=== PATIENT | female | born 1990 ===

== ENCOUNTER 2018-03-19 11:43 | Emergency (ER) | payer BC ==
--- NOTE | 2018-03-19 12:07 | ED PDOC ---
Arrival/HPI - General Chief Complaint: Shortness Of Breath Time Seen by Provider: 03/19/18 11:53 Historian: Patient - History of Present Illness Narrative History of Present Illness (Text): 03/19/18 12:04 is a 28 year old female whose past medical history includes endometriosis, hypothyroidism, and anemia, who presents to the Emergency Department complaining of chest pain and dyspnea, which started yesterday evening. Patient reports that she was sweeping dust when she started coughing, having chest pain, and her face became erythematous and swollen. She also had difficulty breathing. Patient denies taking Benadryl for her symptoms, and her facial symptoms resolved with time. Patient notes that her coughing improved but didn't resolve after 45 minutes. Her chest pain and dyspnea continued throughout the night to today. Patient states that the chest pain is exacerbated by inhaling, and continues to cough. Of note her last normal menstrual period was on 02/27/18, and she denies a history of asthma. Patient admits to being allergic to an antibiotic, which was prescribed for strep throat, but doesn't know the name of the medication. Patient denies fevers, chills, throat sensation, dyspnea on exertion, abdominal pain, nausea, vomiting, diarrhea, neck/back pain, urinary/bowel changes, headache, dizziness, or any other complaint. Time/Duration: Other (yesterday evening) Symptom Onset: Sudden Symptom Course: Unchanged Context: Home Past Medical History - Provider Review Nursing Documentation Reviewed: Yes - Cardiac Hx Cardiac Disorders: No - Pulmonary Hx Respiratory Disorders: Yes Other/Comment: SEASONAL ALLERGIES - Neurological Hx Neurological Disorder: No - HEENT Hx HEENT Disorder: No - Renal Hx Renal Disorder: No - Endocrine/Metabolic Hx Endocrine Disorders: Yes Other/Comment: THYROID DISEASE - Hematological/Oncological Hx Blood Disorders: Yes Hx Anemia: Yes - Integumentary Hx Dermatological Disorder: No - Musculoskeletal/Rheumatological Hx Musculoskeletal Disorders: No - Gastrointestinal Hx Gastrointestinal Disorders: No - Genitourinary/Gynecological Hx Genitourinary Disorders: Yes Other/Comment: ENDOMETRIOSIS - Psychiatric Hx Psychophysiologic Disorder: No Hx Substance Use: No Family/Social History - Physician Review Nursing Documentation Reviewed: Yes Family/Social History: No Known Family HX Smoking Status: Never Smoked Hx Alcohol Use: Yes Frequency of alcohol use: Socially Hx Substance Use: No Allergies/Home Meds Allergies/Adverse Reactions: Allergies soy Allergy (Verified 03/19/18 11:54) RASH UNSPECIFIED ANTIBIOTIC Allergy (Uncoded 03/19/18 11:55) RASH Review of Systems - Physician Review All systems were reviewed & negative as marked: Yes - Review of Systems Constitutional: absent: Fevers, Night Sweats Respiratory: SOB, Cough Cardiovascular: Chest Pain. absent: HOWELL Gastrointestinal: absent: Abdominal Pain, Constipation, Diarrhea, Nausea, Vomiting Genitourinary Female: absent: Urine Output Changes Musculoskeletal: absent: Back Pain, Neck Pain Neurological: absent: Headache, Dizziness Physical Exam Vital Signs Reviewed: Yes Vital Signs Temp Pulse Resp BP Pulse Ox 03/19/18 11:56 99.2 F 98 H 16 128/76 98 Temperature: Afebrile Blood Pressure: Normal Pulse: Regular Respiratory Rate: Normal Appearance: Positive for: Well-Appearing Mental Status: Positive for: Alert and Oriented X 3 - Systems Exam Head: Present: Atraumatic, Normocephalic Pupils: Present: PERRL Extroacular Muscles: Present: EOMI Conjunctiva: Present: Normal Mouth: Present: Moist Mucous Membranes Pharnyx: Present: Normal Neck: Present: Normal Range of Motion Respiratory/Chest: Present: Clear to Auscultation, Decreased Breath Sounds (bilaterally), Rhonchi (scattered). No: Respiratory Distress, Accessory Muscle Use Cardiovascular: Present: Regular Rate and Rhythm, Normal S1, S2. No: Murmurs Abdomen: No: Tenderness, Distention, Peritoneal Signs Back: Present: Normal Inspection Upper Extremity: Present: Normal Inspection. No: Cyanosis, Edema Lower Extremity: Present: Normal Inspection. No: Edema Neurological: Present: GCS=15, CN II-XII Intact, Speech Normal Skin: Present: Warm, Dry, Normal Color. No: Rashes Psychiatric: Present: Alert, Oriented x 3, Normal Insight, Normal Concentration Medical Decision Making ED Course and Treatment: 03/19/18 12:04 Impression: 28 year old female complaining of chest pain and dyspnea that started last evening after sweeping dust. Differential Diagnosis included but are not limited to: Pneumonitis vs. Pneumonia vs. Allergic reaction. Plan: -- Chest X-ray -- Albuterol -- test. -- Reassess and disposition after breathing treatment Progress Notes: 03/19/18 13:00 On reevaluation patient states she feels better after Albuterol treatment. Her lungs sound clear bilaterally. 03/19/18 13:53 Reevaluation: On reevaluation the patient feels better and is in no acute distress. I have discussed the results and plan with the patient, who expresses understanding. Patient given the opportunity to ask question, all questions were answered and there is agreement with the plan to discharge the patient home with prescription for Albuterol inhaler. Patient is stable for discharge. Patient was instructed to follow up with physician/clinic in 1-2 days or return if symptoms persist/worsen or new concerning symptoms arise. - RAD Interpretation Narrative RAD Interpretations (Text): 03/19/18 13:50 Chest X-ray: Dictator : Jesse Arana MD FINDINGS: LUNGS: Mild peribronchial thickening. No evidence of pneumonia PLEURA: No significant pleural effusion identified. No pneumothorax apparent. CARDIOVASCULAR: Normal. OSSEOUS STRUCTURES: No significant abnormalities. VISUALIZED UPPER ABDOMEN: Normal. OTHER FINDINGS: None. IMPRESSION: Mild peribronchial thickening. No evidence of pneumonia Cell Tuber Machine: Radiologist - EKG Interpretation EKG Interpretation (Text): 03/19/18 12:11 EKG shows NSR at 65 BPM with normal axis and interval. No ST/T wave abnormalities. Interpreted by me. Interpreted by ED Physician: Yes Type: 12 lead EKG - Scribe Statement The provider has reviewed the documentation as recorded by the Scribe Reggie Garcia Provider Scribe Attestation: All medical record entries made by the Scribe were at my direction and personally dictated by me. I have reviewed the chart and agree that the record accurately reflects my personal performance of the history, physical exam, medical decision making, and the department course for this patient. I have also personally directed, reviewed, and agree with the discharge instructions and disposition. Disposition/Present on Arrival - Present on Arrival Any Indicators Present on Arrival: No History of DVT/PE: No History of Uncontrolled Diabetes: No Urinary Catheter: No History of Decub. Ulcer: No History Surgical Site Infection Following: None - Disposition Have Diagnosis and Disposition been Completed?: Yes Diagnosis: Cough Disposition: HOME/ ROUTINE Disposition Time: 13:53 Condition: STABLE Discharge Instructions (ExitCare): Cough, Adult (DC) Additional Instructions: ALVA JEAN BAPTISTE, thank you for letting us take care of you today. Your provider was Julianna Bo MD and you were treated for chest pain / trouble breathing. The emergency medical care you received today was directed at your acute symptoms. If you were prescribed any medication, please fill it and take as directed. It may take several days for your symptoms to resolve. Return to the Emergency Department if your symptoms worsen, do not improve, or if you have any other problems. Please contact your doctor or call one of the physicians/clinics you have been referred to that are listed on the Patient Visit Information form that is included in your discharge packet. Bring any paperwork you were given at discharge with you along with any medications you are taking to your follow up visit. Our treatment cannot replace ongoing medical care by a primary care provider outside of the emergency department. Thank you for allowing the [facility] team to be part of your care today. Prescriptions: RX: Albuterol HFA [Ventolin HFA 90 mcg/actuation (8 g)] 2 puff IH [id number] PRN #1 puff PRN Reason: Cough Referrals: Elinor Michele MD [Family Provider] - Follow up with primary Forms: [employer] (Serbian)
[2018-03-19] MEDS ORDERED: Albuterol 0.5% Inhal Sol (2.5 mg/0.5 ml) UD IH STA (12:23)
--- NOTE | 2018-03-19 13:42 | RAD ---
Date of service: 03/19/2018 HISTORY: cough, sob COMPARISON: No prior. TECHNIQUE: Chest PA and lateral FINDINGS: LUNGS: Mild peribronchial thickening. No evidence of pneumonia PLEURA: No significant pleural effusion identified. No pneumothorax apparent. CARDIOVASCULAR: Normal. OSSEOUS STRUCTURES: No significant abnormalities. VISUALIZED UPPER ABDOMEN: Normal. OTHER FINDINGS: None. IMPRESSION: Mild peribronchial thickening. No evidence of pneumonia
[2018-03-19 14:21] VITALS: BP 124/72; PULSE 82; RESP 18; TEMP 98.9; O2SAT 99
--- NOTE | 2018-03-19 15:08 | CARD ---
APPROVED REPORT Date of service: 03/19/2018 EKG Measurement Heart [id number] [id number] <Conclusion> Normal sinus rhythm with sinus arrhythmia Normal ECG
== END 2018-03-19 14:07 | disposition home or self-care (01) ==
LOC: MERGE 11:43 → ED 11:43
DX: R05 Cough (principal); D64.9 Anemia, unspecified